=== PATIENT | female | born 1955 | race Caucasian/White ===

== ENCOUNTER → 2023-07-14 13:45 | Outpatient (REF) | payer OTHER, SELFPAY | LOC: RCS 13:45 | PROVIDERS: ATTENDING PHYSICIAN Family Medicine | DX: R01.2 Other cardiac sounds (principal) | CPT/HCPCS: 93005; 93306 ==

== ENCOUNTER → 2024-03-09 16:53 | Outpatient (REF) | payer OTHER, SELFPAY | LOC: RAD 16:53 | PROVIDERS: ATTENDING PHYSICIAN Family Medicine | DX: M25.552 Pain in left hip (principal); M79.671 Pain in right foot; M79.672 Pain in left foot | CPT/HCPCS: 73502; 73630 ==

== ENCOUNTER 2024-11-10 15:54 | Inpatient (IN) | payer OTHER, SELFPAY ==
[2024-11-10] VITALS (10 sets, daily range): BP systolic 111–147; BP diastolic 58–86; BMI 28.1
[2024-11-10 08:27] LABS: % Basophils 0.6 % (0-2); % Eosinophils 6.5 % (0-6); % Immature Granulocytes 0.2 % (0-0.5); % Lymphocytes 18.5 % (20.5-51.1); % Monocytes 9.1 % (1.7-9.3); % Neutrophils 65.1 % (42.2-75.2); Absolute Eosinophils 0.4 10^3/uL (0-0.7); Absolute Lymphocytes 1.2 10^3/uL (1.2-3.4); Absolute Monocytes 0.6 10^3/uL (0.1-0.6); Absolute Neutrophils 4.3 10^3/uL (1.4-6.5); Hematocrit 42.7 % (37.0-47.0); Hemoglobin 14.8 g/dL (12.0-16.0); Mean Corp Hgb Conc. 34.7 g/dL (33.0-37.0); Mean Corpuscular Hgb 31.8 pg (27.0-31.0); Mean Corpuscular Volume 91.8 fL (81.0-99.0); Mean Platelet Volume 9.4 fL (7.4-10.4); Nucleated Red Blood Cells % 0 %; Platelet Count 351 10^3/uL (130-400); Red Blood Cell Count 4.65 10^6/uL (4.20-5.40); Red Cell Dist. Width 12.7 % (11.5-14.5); White Blood Cell Count 6.6 10^3/uL (4.8-10.8)
--- NOTE | 2024-11-10 08:34 | ED.GENMED ---
History of Present Illness
General
Chief Complaint: Abdominal Pain
Time Seen by Provider: 11/10/24 08:12
History of Present Illness
History of Present Illness:
Patient is a 69-year-old woman presenting to the emergency department epigastric pain that radiates into bilateral upper quadrants. Patient states this pain started last night. It is a uncomfortable sensation in her epigastric region. She is
unable to describe it. She states that it is worse after she eats and lays down. She does note occasional metallic taste in her mouth. No shortness of breath. She did vomit once this morning. She states that this happened to her 3 times before.
She does take an antiacid which does relieve some of the pain. No issues with her heart that she is aware of. No alcohol use. No prior biliary problems.
Phy Exam
Physical Exam
Physical Exam:
GENERAL: in no acute distress
HEENT: normocephalic, extraocular movements intact, moist oral mucosa
NECK: normal inspection
RESPIRATORY: no respiratory distress, clear to auscultation bilaterally
CARDIOVASCULAR: regular rate and rhythm
ABDOMEN/: soft, non-distended, diffuse epigastric and bilateral upper quadrant tenderness to palpation no rebound or guarding
EXTREMITIES: non-tender, no edema/swelling
NEUROLOGIC: awake and alert, moves all extremities
SKIN: warm
Course
Orders/Labs/Results
Orders:
Orders
11/10/24 07:59
ECG [Electrocardiogram (*1)] Urgent
Reason for Study: Chest Pain
EKG- Treatment ONCE
11/10/24 08:21
Complete Blood Count/With Diff Urgent
Troponin I Urgent
11/10/24 08:33
CT Abd/pelvis W Iv Cont Urgent
Comment:
Reason For Exam: epigastric and upper quadrant pain
Famotidine [Pepcid] 20 mg IV NOW STA
Mag Hydrox/Al Hydrox/Simeth [Maalox] 30 ml Phenobarb/Hyoscy/Atropine/Scop [] 10 ml Viscous Lidocaine 2% [Xylocaine Viscous Cup] 10 ml PO NOW
11/10/24 08:35
Mag Hydrox/Al Hydrox/Simeth [Maalox] 30 ml .ROUTE .STK-MED ONE
Phenobarb/Hyoscy/Atropine/Scop [] 10 ml .ROUTE .STK-MED ONE
Viscous Lidocaine 2% [Xylocaine Viscous Cup] 15 ml .ROUTE .STK-MED ONE
11/10/24 08:42
Basic Metabolic Panel Urgent
Lipase Urgent
11/10/24 10:27
LFT [Xheyj-Caau-Ajrvosi] Urgent
11/10/24 11:25
US Abdomen Complete/Upper Urgent
Comment:
Reason For Exam: ruq tenderness
11/10/24 14:38
Ketorolac [Toradol] 15 mg IV NOW STA
11/10/24 15:35
Admit/Transfer Patient As Directed
Co-Sign Provider:
Level of Care: Inpatient admission
Assign to:: Medical/Surgical
Physician / Group: nolberto
Diagnosis: pancreatic mass
Reason for Hospitalization: pancreatic mass
Expected length of stay greater than two midnights?: Yes
ELOS- Estimated Length of Stay in days: 3
I certify the patient meets the requirements for IP care: Yes
PRN Pain Medication Management As Directed
May give lesser potent ordered pain med per pt: Yes
preference::
Protocol:: Medication orders for pain may be administered in a
manner that supports deferring to patient preference
when the pt is:
- Requesting an ordered lesser potent pain medication.
Least to most potent pain medications are defined
as: acetaminophen < NSAID < tramadol < opioids
(morphine, oxycodone, hydromorphone).
- Requesting a lesser dose of the same medication IF
ORDERED.
- Requesting a less intrusive route of administration
if both routes are prescribed by the provider (PO <
IV).
11/10/24 15:36
Code Status As Directed
Resuscitation Status: Full Code
11/10/24 17:50
Acetaminophen [Tylenol] 650 mg PO Q4HPRN PRN
Bisacodyl [Dulcolax] 10 mg RECTAL [id number] PRN
Docusate W/Senna [Senokot-S] 1 tablet PO BIDPRN PRN
HYDROmorphone [Dilaudid] 0.5 mg IV Q4HPRN PRN
Ondansetron Injectable [Zofran] 4 mg IV Q6HPRN PRN
Polyethylene Glycol Powder [Miralax] 17 grams PO DAILYPRN PRN
11/10/24 17:50
GASTROINTESTINAL CONSULT Routine
Consulting Provider: Jayce Cid
Was physician already notified: Yes
SURGICAL CONSULT Routine
Consulting Provider: Vincent Phillips
Was physician already notified: Yes
MR Abdomen W/o & W Contrast Routine
Comment: with MRCP
Reason For Exam: abdominal pain
Recent pill cam endoscopy?: No
Activity As Directed
Activity Level: As Tolerated
Vital Signs As Directed
Frequency: Per unit guidelines
DX Deep Vein Thrombosis Video Routine
11/10/24 18:00
Enoxaparin Sodium [Lovenox] 40 mg SC QPM
Abnormal Lab Results
11/10/24 11/10/24 11/10/24
08:21 08:42 10:27
MCH 31.8 H pg
(27.0-31.0)
Lymphocytes % 18.5 L %
(20.5-51.1)
Eosinophils % 6.5 H %
(0-6)
Chloride 109 H mmol/L
(98-107)
BUN 19 H mg/dl
(7-17)
Glucose 113 H mg/dl
(70-99)
Direct Bilirubin 0.5 H mg/dl
(0.0-0.4)
11/10/24 08:21
11/10/24 08:42
Vital Signs
Initial and Last Documented VS:
Initial Vital Signs
Temp Pulse Resp BP Pulse Ox
97.9 F 87 18 147/83 99
11/10/24 08:03 11/10/24 08:03 11/10/24 08:03 11/10/24 08:03 11/10/24 08:03
Last Documented Vital Signs
Temp Pulse Resp BP Pulse Ox
98.0 F 56 16 130/73 96
11/11/24 11:16 11/11/24 11:16 11/11/24 11:16 11/11/24 11:16 11/11/24 11:16
MDM/Problems Addressed
Differential Diagnosis Includes:
Patient is a 69-year-old woman presenting to the emergency department with abdominal pain that started last night after eating. On arrival vitals unremarkable exam does show tenderness palpation epigastrium while upper quadrants. Differential
symptoms of ACS versus reflux versus pancreatitis versus gallbladder etiology. Will check blood work CT scan and give GI cocktail.
*Critical Care Note
Total Time (30-74mins, 75-104mins- exclusive of procedures): Not Applicable
Update Note
Update Note:
On reevaluation patient states that the pain has slightly improved. Blood work is generally unremarkable. CT scan with possible acute cholecystitis versus contracted gallbladder wall. Will obtain ultrasound.
Ultrasound negative for acute cholecystitis. She does have a 1.7 cm gallstone in her neck. Given persistent tenderness will touch base with Dr. Phillips. Ct also shows pancreatic mass. given the location of the gallstone patient will benefit likely
from mrcp as well as gi eval given the mass. after discussion with surgery he is in agreement. discussed with hospitalist service who accepted patient to their service.
ED Attending Note
-
Portions of this chart may have been created with voice recognition software.� Occasional wrong word or��sound alike� substitutions may have occurred due to the inherent limitations of voice recognition software.
Discharge Plan
Departure
Patient Disposition: Admit
Date of Disposition: 11/10/24
Time of Disposition: 15:09
Presentation/result/management discussed w/ accepting MD/DO: Hospitalist
Discharge Problem:
Gallstone
Interventions
Interventions:
*Risk Screen - Suicide Last Done: 11/10/24 08:03
*General Assessment Last Done: 11/10/24 08:03
*Neglect/Abuse Screening Last Done: 11/10/24 08:03
*ED- Fall Risk Assessment Last Done: 11/10/24 08:09
*ED COVID-19 Vaccine History Last Done: 11/10/24 08:09
*Nursing Disposition Last Done: 11/10/24 17:19
XL-Jlmefv-Ahphseuils Assessment Last Done: 11/10/24 08:10
Discharge Date and Time
Discharge Date/Time: 11/10/24 17:40
[2024-11-10] MEDS: PEPCID 20 MG IV (08:37)
[2024-11-10] MEDS: MAALOX 50 PO (08:38)
[2024-11-10 08:52] LABS: Troponin I < 0.012 ng/ml
[2024-11-10 09:20] LABS: Blood Urea Nitrogen 19 mg/dl (7-17); Calcium 9.8 mg/dl (8.4-10.2); Carbon Dioxide 24 mmol/L (22-30); Chloride 109 mmol/L (98-107); Glucose 113 mg/dl (70-99); Sodium 139 mmol/L (135-145); eGFR > 60.00
[2024-11-10 09:45] LABS: Lipase 139 U/L (23-300)
[2024-11-10 11:13] LABS: ALT (SGPT) 26 U/L (0-35); AST (SGOT) 28 U/L (14-36); Albumin 4.1 g/dl (3.5-5.0); Alkaline Phosphatase 66 U/L (38-126); Direct Bilirubin 0.5 mg/dl (0.0-0.4); Total Bilirubin 0.5 mg/dl (0.2-1.3); Total Protein 7.1 g/dl (6.3-8.2)
[2024-11-10] MEDS: TORADOL 15 MG IV (14:42)
--- NOTE | 2024-11-10 15:14 | HPS.HSE ---
Family Physician
-
Family Physician: Maxine Madrigal
Chief Complaint
-
Abdominal pain
History of Present Illness
69-year-old woman with PMH for right breast cancer s/p right mastectomy and implants presenting to the emergency department epigastric pain that radiates into bilateral upper quadrants since last night. This has occurred couple times past few
months,which resolves with antacid. it usually happens, when she lays down at night for sleep. today the pain got worse and vomited twice. denied diarrhea or constipation. denied fever, chills, cough, congestion, chest pain,sob. denied dysuria or
hematuria.
US concern for Complex mass in the pancreas. Probable benign. Malignancy cannot be excluded. Again, nonurgent dedicated MR examination of the pancreas recommended when the patient is able.
admitting for further management.
patient has history of right breast cancer s/p mastectomy. recently she was noted to have enlarged lymph nodes. biopsy was negative for cancer but noted silicone for which she has follow up appt with oncology at [place].
Medical History
Past Medical History
Past Medical History: Reports Other
Additional Past Medical History:
Breast cancer
Past Surgical History: Reports Other
Additional Past Surgical History:
Breast reduction
right breat mastectomy
Social History
Tobacco: Non-smoker
Alcohol: Occasional
Drug: None
Personal: Partner
Family History
Family History: Not pertinent
Allergies / Home Medications
Allergies reflects when Allergies were last updated in [employer].
Home Medications with original date entered in [employer]
Allergy/Medication List:
Allergies
Allergy/AdvReac Type Severity Reaction Status Date / Time
No Known Allergies Allergy Unverified 11/10/24 08:07
Review of Systems
-
Constitutional: Reports No Symptoms
EENT: Reports No Symptoms
Respiratory: Reports No Symptoms
Cardiac: Reports No Symptoms
Abdomen/GI: Reports Abdominal Pain and Vomiting
: Reports No Symptoms
Musculoskeletal: Reports No Symptoms
Skin: Reports No Symptoms
Neurological: Reports No Symptoms
Endocrine: Reports No Symptoms
Hematologic/Lymphatic: Reports No Symptoms
Psych: Reports No Symptoms
Physical Exam
Vital Signs
Vital Signs
Temp Pulse Resp BP Pulse Ox
97.9 F 60 16 111/68 98
11/10/24 08:03 11/10/24 15:00 11/10/24 15:00 11/10/24 15:00 11/10/24 13:00
Physical Exam
General: Well Developed, Well Nourished and No Apparent Distress
HEENT: NormoCephalic, Moist mucous membranes and Atraumatic
Respiratory: Clear
Cardiac: S1/S2 and Regular Rhythm; No Murmur or Rub
GI: Soft, Non Tender, Non Distended and Normal Bowel Sounds; No Organomegaly
Rectal: Deferred by Provider
Musculoskeletal: No Clubbing, No Cyanosis and No Edema
Skin: No Rash
Neuro: AO x 3 and Nonfocal/grossly intact
Psych: Calm
Laboratory Results
-
11/10/24 08:21
11/10/24 08:42
Laboratory Results
Total Bilirubin 0.5 mg/dl (0.2-1.3) 11/10/24 10:27
AST 28 U/L (14-36) 11/10/24 10:27
ALT 26 U/L (0-35) 11/10/24 10:27
Alkaline Phosphatase 66 U/L (38-126) 11/10/24 10:27
Troponin I < 0.012 ng/ml 11/10/24 08:21
Lipase 139 U/L (23-300) 11/10/24 08:42
Data Reviewed
-
CT Scan: Report Reviewed by me
Ultrasound: Report Reviewed by me
Lab Data: Labs Reviewed by me
Impression/Plan
-
# Gallstone and neck/pancreatic mass
- GI consulted
-as surgery no acute intervention required during hospitalization.
- MRCP
-will keep her NPO, gentle hydration
- IV Dilaudid as needed for pain
-Zofran prn for n/v
- CT abdomen pelvis with impression of Mild gallbladder wall thickening versus gallbladder contraction. Acute cholecystitis cannot be excluded. Abdominal ultrasound recommended.Hypodense pancreatic lesion. This may be benign or malignant. Nonurgent
dedicated MRI examination of the pancreas recommended.Mild diverticulosis. No evidence of acute diverticulitis.
- Abdomen ultrasound with impression of 1.7 cm gallstone in gallbladder neck. No secondary findings to suggest acute cholecystitis. Clinical and laboratory correlation recommended.Mild gallbladder sludge.Findings consistent with benign
adenomyomatosis.Complex mass in the pancreas. Probable benign. Malignancy cannot be excluded. Again, nonurgent dedicated MR examination of the pancreas recommended when the patient is able. See CT report
#hxt of right breast cancer
-s/p right mastectomy
#DVT prophylaxis
-Lovenox
#CODE status
-full code
--- NOTE | 2024-11-10 15:27 | CON.GS ---
Consultation
-
Date/Time Consultation Performed: 11/10/24
Requesting Provider: Paul
Performing Provider: Jacqueline
Reason for Consultation: Biliary colic
Medical History
-
Chief Complaint: Abd pain
History of Present Illness:
69F with acute onset epigastric pain that began last night and prevented sleep. severe and nonradiating. A/w n/v. Denies f/c. Denies changes to stool/urine. had this 3x prior over past few months, most recently 2 weeks ago, but most severe this
time. Began after eating artichoke and heavy butter late at night before bed. Presently she feels back to baseline, no pain no nausea.
Past Medical History
Past Medical History: Other (breast CA)
Past Surgical History: Other (mastectomy and reconstruction with implant)
Social History
Tobacco: Non-Smoker
Drug: None
Personal: Partner
Living: With Family
Family History
Family History: Reviewed & Noncontributory
Allergies / Home Medications
Allergy/AdvReac Type Severity Reaction Status Date / Time
No Known Allergies Allergy Unverified 11/10/24 08:07
Review of Systems
-
A 10 point review of systems was completed, and was negative except as per HPI.
Physical Exam
Vital Signs
Temp Pulse Resp BP Pulse Ox
97.9 F 60 16 111/68 98
11/10/24 08:03 11/10/24 15:00 11/10/24 15:00 11/10/24 15:00 11/10/24 13:00
11/09/24 11/10/24 11/11/24
06:59 06:59 06:59
Actual Weight 81.3 kg
Lab Results
11/10/24 08:21
11/10/24 08:42
WBC 6.6 10^3/uL (4.8-10.8) 11/10/24 08:21
Hgb 14.8 g/dL (12.0-16.0) 11/10/24 08:21
Hct 42.7 % (37.0-47.0) 11/10/24 08:21
Plt Count 351 10^3/uL (130-400) 11/10/24 08:21
Abs Immat Gran (auto) 0.0 10^3/uL (0-0.05) 11/10/24 08:21
Neutrophils % 65.1 % (42.2-75.2) 11/10/24 08:21
Physical Exam
General: Well Developed, Well Nourished and No Apparent Distress
GI: Soft, Non Tender and Non Distended
Skin: Warm and Dry
Neuro: AO x 3
Psych: Calm
Data Reviewed
-
CT Scan: Image Personally Visualized and interpreted, Report Reviewed by me, Discussed with Physician, Discussed with Patient and Discussed with Family
Ultrasound: Image Personally Visualized and interpreted, Report Reviewed by me, Discussed with Physician and Discussed with Family
Labs: Labs Reviewed by me, Discussed with Physician, Discussed with Patient and Discussed with Family
Assessment / Plan
-
69F with biliary colic and new incidental pancreatic mass
AFVSS, benign exam
Labs unremarkable
US with stones but no stigmata of ACC
CT with complex cystic panc mass
She will benefit from CCY on an elective basis
Advised low fat diet
Discussed inpt vs outpt w/u of panc mass, given her personal hx of breast AC she prefers inpt w/u and does not feel comfortable with DC
F/U with GS after panc mass w/u
Pls call with ?s
--- NOTE | 2024-11-10 16:10 | W.PN.UPDATE ---
Update Note
Progress Note Update
I saw and examined the patient.
The PIPE ASSEMBLY WORKER's note was reviewed and I agree with the note.
Comment:
HPI: 69-year-old woman with PMH of right breast cancer s/p right mastectomy and implant; p/w epigastric pain, N/V that started the night [employer]. Her epigastric abdominal pain has been ongoing for the past few months.
She denies the symptoms.
CT AP:
Mild gallbladder wall thickening versus gallbladder contraction. Acute cholecystitis cannot be excluded. Abdominal ultrasound recommended.
Hypodense pancreatic lesion. This may be benign or malignant. Nonurgent dedicated MRI examination of the pancreas recommended.
Mild diverticulosis. No evidence of acute diverticulitis.
Abd US:
1.7 cm gallstone in gallbladder neck. No secondary findings to suggest acute cholecystitis. Clinical and laboratory correlation recommended.
Mild gallbladder sludge.
Findings consistent with benign adenomyomatosis.
Complex mass in the pancreas. Probable benign. Malignancy cannot be excluded. Again, nonurgent dedicated MR examination of the pancreas recommended when the patient is able. See CT report
A/P:
# Gallstone at gallbladder neck
# Pancreatic mass
CT AP and Abd US reports as above
GI consulted
Check MRCP/MRI Abd
IV Dilaudid as needed for pain
Zofran prn for n/v
# h/o right breast cancer s/p right mastectomy
DVT prophylaxis: Lovenox SQ
CODE status: full code
--- NOTE | 2024-11-10 16:19 | CON.GI ---
Consultation
-
Date/Time Consultation Performed: 11/10/24
Performing Provider: See Cid MD
Reason for Consultation: epiagstric pain, abnormal CT
Medical History
Chief Complaint / HPI
Chief Complaint: epigastric pain
History of Present Illness:
The patient is a 69-year-old female with past medical history as noted with epigastric pain and abnormal imaging. She has had several episodes of pain, she describes in the epigastrium that radiates to her chest, with sometimes associated nausea
and 1 episode of vomiting. Is been intermittent over the past several weeks, they do seem to be related to eating, use about an hour afterwards. They are not associate with exertion, and denies any shortness of breath. Denies any significant
regurgitation or heartburn though does have occasional intermittent solid food dysphagia. Her last colonoscopy in 2022 showed diverticulosis though otherwise was unremarkable. She is never had an endoscopy.
Past Medical History
Past Medical History: Other (Breast cancer, status postmastectomy with reconstruction and implant)
Past Surgical History: Other (Mastectomy with flap reconstruction and implant)
Social History
Tobacco: Non-Smoker
Alcohol: Occasional
Family History
Family History: Reviewed & Not Pertinent
Allergies / Home Medications
Allergy/AdvReac Type Severity Reaction Status Date / Time
No Known Allergies Allergy Unverified 11/10/24 08:07
�Medication �Instructions �Recorded
albuterol sulfate 90 mcg/actuation 2 puff inhalation R Q6HPRN PRN sob 11/10/24
aerosol inhaler
ibuprofen 200 mg tablet (Advil) 400 mg PO Q8HPRN PRN mild pain 11/10/24
pantoprazole 40 mg tablet,delayed 40 mg PO DAILY 11/10/24
release (Protonix)
sumatriptan succinate 50 mg tablet 0 mg PO .COMPLEX 11/10/24
therapeutic multivitamin 1 tab PO DAILY 11/10/24
Review of Systems
-
All other systems: A 12 pt ROS was Negative except as stated above in HPI
Vital Signs
Temp Pulse Resp BP Pulse Ox
97.9 F 62 19 121/83 98
11/10/24 08:03 11/10/24 16:00 11/10/24 16:00 11/10/24 16:00 11/10/24 16:07
Physical Exam
Exam
General: NAD
HEENT: MMM, anicteric, no lymphadenopathy
Heart: Regular, no murmurs
Lungs: CTA bilaterally
Abdomen: normal bowel sounds, soft, no tenderness, no rebound or guarding, no masses, bruits or ascites, well-healed surgical scar
Extremeties: no edema
Skin: no rashes
Results
WBC 6.6 10^3/uL (4.8-10.8) 11/10/24 08:21
Hgb 14.8 g/dL (12.0-16.0) 11/10/24 08:21
Hct 42.7 % (37.0-47.0) 11/10/24 08:21
MCV 91.8 fL (81.0-99.0) 11/10/24 08:21
Plt Count 351 10^3/uL (130-400) 11/10/24 08:21
Absolute Neuts (auto) 4.3 10^3/uL (1.4-6.5) 11/10/24 08:21
Sodium 139 mmol/L (135-145) 11/10/24 08:42
Potassium mmol/L (3.5-5.1) 11/10/24 08:42
Chloride 109 mmol/L (98-107) H 11/10/24 08:42
Carbon Dioxide 24 mmol/L (22-30) 11/10/24 08:42
BUN 19 mg/dl (7-17) H 11/10/24 08:42
Creatinine 0.7 mg/dL (0.6-1.0) 11/10/24 08:42
Calcium 9.8 mg/dl (8.4-10.2) 11/10/24 08:42
Total Bilirubin 0.5 mg/dl (0.2-1.3) 11/10/24 10:27
AST 28 U/L (14-36) 11/10/24 10:27
ALT 26 U/L (0-35) 11/10/24 10:27
Alkaline Phosphatase 66 U/L (38-126) 11/10/24 10:27
Lipase 139 U/L (23-300) 11/10/24 08:42
Diagnostic Image Results:
CT:
IMPRESSION: Mild gallbladder wall thickening versus gallbladder contraction. Acute cholecystitis cannot be excluded. Abdominal ultrasound recommended.
Hypodense pancreatic lesion. This may be benign or malignant. Nonurgent dedicated MRI examination of the pancreas recommended.
Mild diverticulosis. No evidence of acute diverticulitis.
US:
IMPRESSION: 1.7 cm gallstone in gallbladder neck. No secondary findings to suggest acute cholecystitis. Clinical and laboratory correlation recommended.
Mild gallbladder sludge.
Findings consistent with benign adenomyomatosis.
Complex mass in the pancreas. Probable benign. Malignancy cannot be excluded. Again, nonurgent dedicated MR examination of the pancreas recommended when the patient is able. See CT report
Prior GI Procedures:
EGD:
Colonoscopy:
Assessment / Plan
-
1. Epigastric pain: With symptoms most consistent with biliary colic, with stones seen in the neck of the gallbladder on ultrasound, though no suggestion of cholecystitis, now feeling much better. She has been seen by surgery, not scheduled for
surgery, though would follow-up for eventual cholecystectomy.
2. Abnormal CT/ultrasound: With 3 to 4 cm Hypodense lesion in the pancreas. On ultrasound this was noted to be partially solid and partially cystic, CT scan was less definitive. There is no pancreatic duct dilation. At this point we will check
MRI of the abdomen with and without contrast, with MRCP, pending those results we will likely need endoscopic ultrasound at least based on the size.
3. Dysphagia: Intermittent, to solids, most common etiology would be Schatzki's ring, nonprogressive. Will plan endoscopy at time of probable endoscopic ultrasound pending clinical course.
-
-
Thank you for consultation and allowing me to participate in the patient's care. Please call the environmental designer GI physician during the after hours with any questions or concerns.
--- NOTE | 2024-11-11 05:49 | W.PN.GI.CBS2 ---
Today's Communication / Plan
-
Please see assessment and plan for details.
Assessment / Plan
-
1. Epigastric pain: With symptoms most consistent with biliary colic, with stones seen in the neck of the gallbladder on ultrasound, though no suggestion of cholecystitis, now feeling much better. Plan eventual cholecystectomy per surgery. She
tolerated diet overnight without difficulty.
2. Abnormal CT/ultrasound: With 3 to 4 cm Hypodense lesion in the pancreas. On ultrasound this was noted to be partially solid and partially cystic, CT scan was less definitive. There is no pancreatic duct dilation. Will await MRI results done
overnight.
3. Dysphagia: Intermittent, to solids, most common etiology would be Schatzki's ring, nonprogressive. Will plan endoscopy at time of probable endoscopic ultrasound pending clinical course.
Pending MRI results likely able to DC today, though will review with patient once available.
Subjective
Subjective
Date of Service: November 11, 2024
Patient feeling well, no abdominal pain overnight, tolerated dinner without difficulty. No fever or chills.
Objective
Data Reviewed
Laboratory Data:
Laboratory Results
11/10/24 08:21
11/10/24 08:42
Laboratory Results
Total Bilirubin 0.5 mg/dl (0.2-1.3) 11/10/24 10:27
AST 28 U/L (14-36) 11/10/24 10:27
ALT 26 U/L (0-35) 11/10/24 10:27
Alkaline Phosphatase 66 U/L (38-126) 11/10/24 10:27
Lipase 139 U/L (23-300) 11/10/24 08:42
Vital Signs and I&O:
Vital Signs
Temp Pulse Resp BP Pulse Ox
98.2 F 74 16 112/58 94
11/10/24 23:00 11/10/24 23:00 11/10/24 23:00 11/10/24 23:00 11/10/24 23:00
Physical Exam
Physical Exam
General: NAD
Abdomen: normal bowel sounds, soft, no tenderness, no masses or bruits, no ascites
[2024-11-11 07:00] VITALS: BP 124/72
[2024-11-11] MEDS: TYLENOL 650 MG PO (08:17)
--- NOTE | 2024-11-11 08:55 | W.PN.UPDATE ---
Update Note
Progress Note Update
Reviewed MRI, most consistent with serous cystadenoma , discussed with patient. Discussed with Dr. Esparza, will set up office visit to discuss further, possible EUS versus MRI surveillance. She is okay to DC from GI standpoint.
--- NOTE | 2024-11-11 10:36 | W.PN.HOSP.TC ---
Addendum entered and electronically signed by Bettie Tomas MD 11/11/24 12:31:
total DC time 38 min
Original Note:
Today's Communication/Plan
-
DC today
Assessment / Plan
Assessment / Plan
HPI: 69-year-old woman with PMH of right breast cancer s/p right mastectomy and implant; p/w epigastric pain, N/V that started the night [employer]ACHINE [employer]. Her epigastric abdominal pain has been ongoing for the past few months.
She denies the symptoms.
CT AP:
Mild gallbladder wall thickening versus gallbladder contraction. Acute cholecystitis cannot be excluded. Abdominal ultrasound recommended.
Hypodense pancreatic lesion. This may be benign or malignant. Nonurgent dedicated MRI examination of the pancreas recommended.
Mild diverticulosis. No evidence of acute diverticulitis.
Abd US:
1.7 cm gallstone in gallbladder neck. No secondary findings to suggest acute cholecystitis. Clinical and laboratory correlation recommended.
Mild gallbladder sludge.
Findings consistent with benign adenomyomatosis.
Complex mass in the pancreas. Probable benign. Malignancy cannot be excluded. Again, nonurgent dedicated MR examination of the pancreas recommended when the patient is able. See CT report
A/P:
# biliary colic
# Gallstone at gallbladder neck
# Pancreatic mass
CT AP and Abd US reports as above
MRI confirmed Gallstone in the gallbladder neck and mild gallbladder wall thickening/pericholecystic fluid. Also noted 2.8 cm complex cystic lesion in the body of the pancreas with multiple thin enhancing internal septations. Imaging appearance most
suggestive of a cystic pancreatic neoplasm, possibly a serous cystadenoma. Follow-up imaging in 6 months versus EUS/FNA and surgical consultation per ACR recommendations.
GI reviewed MRI imaging, felt most consistent with serous cystadenoma.
Pt can follow up with Dr Esparza to discuss further possible EUS versus MRI surveillance.
Per GS, she can benefit from CCY on an elective basis
# h/o right breast cancer s/p right mastectomy
DVT prophylaxis: Lovenox SQ
CODE status: full code
DW GI
Anticipated Discharge: Today
Subjective/Interval History
-
Date of Service: November 11, 2024
Objective Data
-
Vital Signs:
Vital Signs
Temp Pulse Resp BP Pulse Ox
36.5 C 62 18 124/72 95
11/11/24 07:00 11/11/24 07:00 11/11/24 07:00 11/11/24 07:00 11/11/24 07:00
I&O
11/10/24 11/11/24 11/12/24
06:59 06:59 06:59
Intake Total 480 / 480
Balance 480 / 480
Review of Systems
-
History Source: Patient
All other systems: Reviewed and negative
Physical Exam
-
General: Well Developed, Well Nourished, No Apparent Distress, Comfortable and Conversant; Negative Respiratory Distress
HEENT: Normocephalic, Atraumatic, Nose Appears Normal and Ears Appear Normal; Negative Oxygen
Respiratory: Clear to Auscultation and Non Labored Respirations; Negative Accessory Resp Muscle Use
Cardiac: Regular Rhythm and S1/S2
GI: Soft, Nontender, Nondistended and Normal Bowel Sounds
Skin: Warm and Dry
Neuro: Awake, Alert, Oriented, AO x 3 and Nonfocal/Grossly Intact
Psych: Calm and Intact Judgement/Insight
Data Reviewed
-
CT Scan: Report Reviewed by me
Ultrasound: Report Reviewed by me
MRI: Report Reviewed by me and Discussed with Patient
Labs: Labs Reviewed by me
[2024-11-11 11:16] VITALS: BP 130/73
--- NOTE | 2024-11-11 12:27 | W.DCSUMMARY ---
Discharge Summary
Discharge Data
Date of Admission: 11/10/24
Date of Discharge: 11/11/24
-
Pending Results: No
Hospital Course
Principal Diagnosis:
# biliary colic
# Gallstone at gallbladder neck
# Pancreatic mass
Chronic Diagnoses:�
H/o right breast cancer s/p right mastectomy
Consultations:�
Gastroenterology
General Surgery
Procedures:�
None
Clinical course:�
This is a 69-year-old woman with past medical history as stated above, who presented with chronic intermittent epigastric abdominal pain, associated with nausea and vomiting that started on the day of admission.
CT AP:
Mild gallbladder wall thickening versus gallbladder contraction. Acute cholecystitis cannot be excluded. Abdominal ultrasound recommended.
Hypodense pancreatic lesion. This may be benign or malignant. Nonurgent dedicated MRI examination of the pancreas recommended.
Mild diverticulosis. No evidence of acute diverticulitis.
Abd US:
1.7 cm gallstone in gallbladder neck. No secondary findings to suggest acute cholecystitis. Clinical and laboratory correlation recommended.
Mild gallbladder sludge.
Findings consistent with benign adenomyomatosis.
Complex mass in the pancreas. Probable benign. Malignancy cannot be excluded. Again, nonurgent dedicated MR examination of the pancreas recommended when the patient is able. See CT report
Problem 1:
# biliary colic
# Gallstone at gallbladder neck
# Pancreatic mass
Her MRI abdomen/MRCP confirmed CT abdomen pelvis and ultrasound finding, noted gallstone in the gallbladder neck and mild gallbladder wall thickening/pericholecystic fluid. Also noted 2.8 cm complex cystic lesion in the body of the pancreas with
multiple thin enhancing internal septations. Imaging appearance most suggestive of a cystic pancreatic neoplasm, possibly a serous cystadenoma.
This was reviewed with Dr. Esparza gastroenterology transportation sales consultant, who recommend that patient can follow-up for possible EUS versus MRI surveillance outpatient.
Per surgery, patient can also follow-up outpatient for elective cholecystectomy.
She has been informed to continue low-fat diet going forward.
Discharge Plan
-
Patient Disposition: Home (Routine Discharge)
Discharge Diagnosis/Procedures: # biliary colic
# Gallstone at gallbladder neck
# Pancreatic mass
Condition: Good
Diet: As tolerated, Low Fat and Low Cholesterol
Activity: As tolerated
Driving Restrictions: As prior to admission
Activity Restrictions/Additional Instructions:
Follow up with Dr Esparza to discuss possible EUS versus MRI surveillance for the pancreatic mass.
Follow up with general surgery to discus elective cholecystectomy
Referrals:
Maxine Madrigal DO [Family Provider, Family Practice] - in less than 1 week
Salvador Esparza MD [Active, Gastroenterology] - 12/27/24 7:30 am
Prescriptions:
Continued
sumatriptan succinate 50 mg Tablet
0 mg PO .COMPLEX
Rx Instructions:
take 1 tab at onset of headache; if no relief may repeat 1 tab after at least 2 hrs; max = 4 tabs/24 hr
therapeutic multivitamin Tablet
1 tab PO DAILY
pantoprazole [Protonix] 40 mg Tablet,Delayed Release (Dr/Ec)
40 mg PO DAILY
ibuprofen [Advil] 200 mg Tablet
400 mg PO Q8HPRN PRN (Reason: mild pain)
albuterol sulfate 90 mcg/actuation Hfa Aerosol Inhaler
2 puff INHALATION R Q6HPRN PRN (Reason: sob)
Discharge Orders:
Discharge Patient (As Directed); Ordered 11/11/24
Ordered By: Bettie Tomas
Discharge Date and Time
Discharge Date/Time: 11/11/24 11:41
Print Language: CAMBODIAN
== END 2024-11-11 11:41 | disposition home or self-care (01) | DRG 446 ==
LOC: 3 WEST ACU 15:54
PROVIDERS: ADMITTING PHYSICIAN Internal Medicine; CONSULT PHYSICIAN Internal Medicine Gastroenterology; CONSULT PHYSICIAN Surgery; EMERGENCY PHYSICIAN Student in an Organized Health Care Education/Training Program; FAMILY PHYSICIAN Family Medicine
DX: K80.00 Calculus of gallbladder with acute cholecystitis without obstruction (principal); K86.9 Disease of pancreas, unspecified; R59.9 Enlarged lymph nodes, unspecified; K82.8 Other specified diseases of gallbladder; K57.30 Diverticulosis of large intestine without perforation or abscess without bleeding; R13.10 Dysphagia, unspecified; G89.29 Other chronic pain; Z85.3 Personal history of malignant neoplasm of breast; Z90.11 Acquired absence of right breast and nipple
CPT/HCPCS: 74177; 74183; 76700; 80048; 80076; 83690; 84484; 85025; 93005; 96374; 96375; 99285; A9575; Q9967